=== PATIENT | female | born 1990 | race Hispanic/Latino ===

== ENCOUNTER 2019-02-26 18:34 | Emergency (ER) | payer BC ==
[2019-02-26 19:52] LABS: Absolute Lymphocytes (CBC) 1.8 K/uL (0.7-4.9); Absolute Monocytes 0.8 K/uL (0.1-1.3); Absolute Neutrophil 7.1 K/uL (1.8-8.0); Basophils % 0.3 % (0-1.3); Eosinophils % 1.3 % (0-4.4); Hematocrit 36.7 % (36.0-45.0); Lymphocytes % 18.2 % (15.3-44.8); MPV 8.8 fL (7.6-11.3); Monocytes % 7.7 % (3.3-12.3)
[2019-02-26 20:25] LABS: BUN Blood Urea Nitrogen 13 mg/dL (7-18); Bicarbonate 25 mmol/L (21-32); Glucose Level 82 mg/dL (74-106); HCG, Quantitative 121678 mIU/mL (1-3); Potassium 3.8 mmol/L (3.5-5.1); Sodium Level 140 mmol/L (136-145)
--- NOTE | 2019-02-26 21:53 | ER ---
Nurse's Notes [facility] Name: Ana Marin Age: 28 yrs Sex: Female : 1990 Arrival Date: 02/26/2019 Time: 18:38 Bed 14 Private MD: Diagnosis: 13 weeks gestation of Presentation: 02/26 18:54 Presenting complaint: Patient states: lately i have been having sharp stomach pains, i tw2 am with twins and i am 13 weeks, denies vag bleeding, center abdominal pain, +N, +V. Transition of care: patient was not received from another setting of care. Onset of symptoms was February 26, 2019. Risk Assessment: Do you want to hurt yourself or someone else? Patient reports no desire to harm self or others. Initial Sepsis Screen: Does the patient meet any 2 criteria? No. Patient's initial sepsis screen is negative. Does the patient have a suspected source of infection? No. Patient's initial sepsis screen is negative. Care prior to arrival: None. 18:54 Method Of Arrival: Ambulatory tw2 18:54 Acuity: MARTÍN 3 tw2 Triage Assessment: 18:56 General: Appears in no apparent distress. Behavior is calm, cooperative, appropriate tw2 for age. Pain: Complains of pain in abdomen. GI: Reports nausea, vomiting. 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 - Social history:: Smoking status: . - Ebola Screening: : Patient denies travel to an Ebola-affected area in the 21 days before illness onset. Screenin:09 Abuse screen: Denies threats or abuse. Nutritional screening: No deficits noted. jb4 Tuberculosis screening: No symptoms or risk factors identified. Fall Risk None identified. Assessment: 19:10 General: Appears in no apparent distress. comfortable, Behavior is calm, cooperative, jb4 appropriate for age. Pain: Complains of pain in abdomen Pain does not radiate. Pain currently is 0 out of 10 on a pain scale. at worst was 8 out of 10 on a pain scale. Quality of pain is described as crampy, Pain began 2-3 days ago. Is intermittent. Neuro: Level of Consciousness is awake, alert, obeys commands, Oriented to person, place, time, situation. Cardiovascular: Patient's skin is warm and dry. Respiratory: Airway is patent Respiratory effort is even, unlabored, Respiratory pattern is regular, symmetrical. GI: Abdomen is round non-distended, Bowel sounds present X 4 quads. Abd is soft and non tender X 4 quads. : No signs and/or symptoms were reported regarding the genitourinary system. EENT: No signs and/or symptoms were reported regarding the EENT system. Derm: Skin is intact, Skin is pink, warm \T\ dry. Musculoskeletal: Circulation, motion, and sensation intact. Range of motion: intact in all extremities. 20:09 Reassessment: Patient appears in no apparent distress at this time. Patient and/or jb4 family updated on plan of care and expected duration. Pain level reassessed. Patient is alert, oriented x 3, equal unlabored respirations, skin warm/dry/pink. pt is resting in bed with significant other at the bedside. 21:32 Reassessment: Pt is at ultrasound. jb4 21:53 Reassessment: Patient appears in no apparent distress at this time. Patient and/or jb4 family updated on plan of care and expected duration. Pain level reassessed. Patient is alert, oriented x 3, equal unlabored respirations, skin warm/dry/pink. Pt back in bed with significant other at the bedside. Vital Signs: 18:55 BP 147 / 68; Pulse 78; Resp 19; Temp 97.4(TE); Pulse Ox 99% on R/A; Weight 80.29 kg tw2 (R); Height 5 ft. 4 in. (162.56 cm); Pain 5/10; 20:09 BP 102 / 60; Pulse 78; Resp 16; Pulse Ox 100% on R/A; jb4 21:00 BP 106 / 52; Pulse 71; Resp 16; Pulse Ox 100% on R/A; jb4 21:53 BP 103 / 56; Pulse 64; Resp 16; Pulse Ox 99% on R/A; jb4 18:55 Body Mass Index 30.38 (80.29 kg, 162.56 cm) tw2 18:55 it comes and goes and it jumps up to a 9 tw2 ED Course: 18:38 Patient arrived in ED. mr 18:55 Triage completed. tw2 18:56 Arm band placed on. tw2 19:02 Zaynab Whelan FNP-C is [facility]. kb 19:02 Jose J Contreras MD is Attending Physician. kb 19:10 Patient has correct armband on for positive identification. Placed in gown. Bed in low jb4 position. Call light in reach. Side rails up X 1. Pulse ox on. NIBP on. 19:19 Kenton Becker, RN is Primary Nurse. jb4 19:38 Inserted saline lock: 22 gauge in left antecubital area, using aseptic technique. cm6 19:38 Initial lab(s) drawn, by ED staff, sent to lab. jb4 21:48 1St Trimester Each Addit Fetus In Process Unspecified. EDMS 21:48 1St Trimester Twins In Process Unspecified. EDMS 22:00 No provider procedures requiring assistance completed. IV discontinued, intact, jb4 bleeding controlled, No redness/swelling at site. Administered Medications: No medications were administered Outcome: 21:52 Discharge ordered by MD. kb 22:00 Discharged to home ambulatory, with significant other. jb4 22:00 Condition: stable 22:00 Discharge instructions given to patient, significant other, Instructed on discharge instructions, follow up and referral plans. Demonstrated understanding of instructions, follow-up care. 22:04 Patient left the ED. jb4 Signatures: Dispatcher [employer] EDMD Zaynab Whelan FNP-C CIVIL ATTORNEY-Venkata Emma Kramer Emily Monaco RN RN tw2 Kenton Becker, RN RN jb4 Xenia Montero cm6 Tao Ng RN RN ae4 Corrections: (The following items were deleted from the chart) 20:33 19:10 General: Appears in no apparent distress. comfortable, Behavior is calm, jb4 cooperative, appropriate for age, ae4 20:33 19:10 Pain: Complains of pain in abdomen Pain does not radiate. Pain currently is 0 out jb4 of 10 on a pain scale. at worst was 8 out of 10 on a pain scale. Quality of pain is described as crampy, Pain began 2-3 days ago. Is intermittent, ae4 20:33 19:10 Neuro: Level of Consciousness is awake, alert, obeys commands, Oriented to jb4 person, place, time, situation, ae4 20:33 19:10 Cardiovascular: Patient's skin is warm and dry. ae4 jb4 20:33 19:10 Respiratory: Airway is patent Respiratory effort is even, unlabored, Respiratory jb4 pattern is regular, symmetrical, ae4 20:33 19:10 GI: Abdomen is round non-distended, Bowel sounds present X 4 quads. Abd is soft jb4 and non tender X 4 quads. ae4 20:33 19:10 : No signs and/or symptoms were reported regarding the genitourinary system. ae4jb4 : 19:10 EENT: ae4 jb4 : 19:10 Derm: Skin is intact, Skin is pink, warm \T\ dry. ae4 jb4 :33 19:10 Musculoskeletal: Circulation, motion, and sensation intact. Range of motion: jb4 intact in all extremities, ae4 :33 20:09 Reassessment: Patient appears in no apparent distress at this time. Patient jb4 and/or family updated on plan of care and expected duration. Pain level reassessed. Patient is alert, oriented x 3, equal unlabored respirations, skin warm/dry/pink. significant other is at the bedside. ae4 20:34 20:09 BP 102 / 60; Pulse 78bpm; Resp 16bpm; Pulse Ox 100% RA; ae4 jb4 20:34 19:10 Patient has correct armband on for positive identification. Placed in gown. Bed jb4 in low position. Call light in reach. Side rails up X 1. ae4 20:34 19:10 Pulse ox on. NIBP on. ae4 jb4 20:34 19:38 Initial lab(s) drawn, by ED staff, sent to lab. ae4 4 20:34 20:09 Abuse screen: Denies threats or abuse. ae4 jb4 20:34 20:09 Nutritional screening: No deficits noted. ae4 jb4 20:34 20:09 Tuberculosis screening: No symptoms or risk factors identified. ae4 jb4 20:34 20:09 Fall Risk None identified. ae4 jb4 22:59 21:53 BP 103 / 56; Pulse 46bpm; Resp 16bpm; Pulse Ox 99% RA; jb4 jb4
--- NOTE | 2019-02-26 21:53 | EDPHYS ---
Physician Documentation [facility] Name: Ana Marin Age: 28 yrs Sex: Female : 1990 Arrival Date: 02/26/2019 Time: 18:38 Bed 14 Private MD: ED Physician Jose J Contreras HPI: 02/26 21:30 This 28 yrs old Female presents to ER via Ambulatory with complaints of kb Abdominal Pain, 13 wks . 21:30 The patient presents to the emergency department with abdominal pain, of the suprapubic kb area. The estimated gestational age is 13 weeks. course: care: private OB physician, Dr. Lopez, Leakage of Fluid: none appreciated, Ultrasound: the patient had an ultrasound, which was normal, Risk/complications: no obvious risks or complications are appreciated. Previous pregnancies: in previous pregnancies patient has had. Associated signs and symptoms: Pertinent positives: abdominal pain, Pertinent negatives: chest pain, diarrhea, dysuria, fever, frequency, nausea, ruptured membranes, seizure, shortness of breath, vaginal bleeding, vaginal discharge, vomiting. The patient has not experienced similar symptoms in the past. The patient has not recently seen a physician. Pt reports she has been having lower abd pain and is with twins so was concerned.. 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 - Social history:: Smoking status: . - Ebola Screening: : Patient denies travel to an Ebola-affected area in the 21 days before illness onset. ROS: 21:27 Constitutional: Negative for fever, chills, and weight loss, Cardiovascular: Negative kb for chest pain, palpitations, and edema, Respiratory: Negative for shortness of breath, cough, wheezing, and pleuritic chest pain, Back: Negative for injury and pain, : Negative for injury, bleeding, discharge, and swelling, MS/Extremity: Negative for injury and deformity, Skin: Negative for injury, rash, and discoloration, Neuro: Negative for headache, weakness, numbness, tingling, and seizure. 21:27 Abdomen/GI: Positive for abdominal pain, Negative for nausea, vomiting, and diarrhea, constipation, abdominal cramps, abdominal distension, anorexia. Exam: 21:27 Constitutional: This is a well developed, well nourished patient who is awake, alert, kb and in no acute distress. Head/Face: Normocephalic, atraumatic. Chest/axilla: Normal chest wall appearance and motion. Nontender with no deformity. No lesions are appreciated. Cardiovascular: Regular rate and rhythm with a normal S1 and S2. No gallops, murmurs, or rubs. Normal PMI, no JVD. No pulse deficits. Respiratory: Lungs have equal breath sounds bilaterally, clear to auscultation and percussion. No rales, rhonchi or wheezes noted. No increased work of breathing, no retractions or nasal flaring. Back: No spinal tenderness. No costovertebral tenderness. Full range of motion. Skin: Warm, dry with normal turgor. Normal color with no rashes, no lesions, and no evidence of cellulitis. MS/ Extremity: Pulses equal, no cyanosis. Neurovascular intact. Full, normal range of motion. Neuro: Awake and alert, GCS 15, oriented to person, place, time, and situation. Cranial nerves II-XII grossly intact. Motor strength 5/5 in all extremities. Sensory grossly intact. Cerebellar exam normal. Normal gait. 21:27 Abdomen/GI: Inspection: abdomen appears normal, Bowel sounds: normal, in all quadrants, Palpation: soft, in all quadrants, mild abdominal tenderness, in the suprapubic area. Vital Signs: 18:55 BP 147 / 68; Pulse 78; Resp 19; Temp 97.4(TE); Pulse Ox 99% on R/A; Weight 80.29 kg tw2 (R); Height 5 ft. 4 in. (162.56 cm); Pain 5/10; 20:09 BP 102 / 60; Pulse 78; Resp 16; Pulse Ox 100% on R/A; jb4 21:00 BP 106 / 52; Pulse 71; Resp 16; Pulse Ox 100% on R/A; jb4 21:53 BP 103 / 56; Pulse 64; Resp 16; Pulse Ox 99% on R/A; jb4 18:55 Body Mass Index 30.38 (80.29 kg, 162.56 cm) tw2 18:55 it comes and goes and it jumps up to a 9 tw2 MDM: 19:03 Patient medically screened. kb 21:29 Data reviewed: vital signs, nurses notes. Data interpreted: Pulse oximetry: on room air kb is 100 %. Interpretation: normal. Counseling: I had a detailed discussion with the patient and/or guardian regarding: the historical points, exam findings, and any diagnostic results supporting the discharge/admit diagnosis, lab results, radiology results, the need for outpatient follow up, an OB/Gyne specialist, to return to the emergency department if symptoms worsen or persist or if there are any questions or concerns that arise at home. 02/26 19:14 Order name: Quantitative Hcg; Complete Time: 20:41 kb 02/26 19:14 Order name: Abo/rh Typing; Complete Time: 20:50 kb 02/26 19:14 Order name: Basic Metabolic Panel; Complete Time: 20:41 kb 02/26 19:14 Order name: CBC with Diff; Complete Time: 19:56 kb 02/26 19:14 Order name: IV Saline Lock; Complete Time: 20:02 kb 02/26 19:14 Order name: Labs collected and sent; Complete Time: 20:02 kb 02/26 19:14 Order name: NPO; Complete Time: 20:02 kb 02/26 19:14 Order name: Urine Dipstick-Ancillary (obtain specimen); Complete Time: 20:02 kb 02/26 21:02 Order name: 1St Trimester Each Addit Fetus EDMS 02/26 21:48 Order name: 1St Trimester Twins EDMS Administered Medications: No medications were administered Disposition: 02/27 07:50 Co-signature as Attending Physician, Jose J Contreras MD I agree with the assessment and kristina plan of care. Disposition: 02/26/19 21:52 Discharged to Home. Impression: 13 weeks gestation of . - Condition is Stable. - Discharge Instructions: Second Trimester of , [id number]. - Medication Reconciliation Form, Thank You Letter, Antibiotic Education, Prescription Opioid Use form. - Work release form (02/26/19 22:05). jb4 - Follow up: Emergency Department; When: As needed; Reason: Worsening of condition. Follow up: Private Physician; When: 2 - 3 days; Reason: Recheck today's complaints, Continuance of care, Re-evaluation by your physician. Signatures: Dispatcher [employer] ED Zaynab Whelan, PREVENTION RN-Jahaira VALENTINEP-Jose J Ta MD MD cha Wise, Tara, RN RN tw2 Kenton Becker, RN RN jb4 Corrections: (The following items were deleted from the chart) 02/26 21:01 20:43 Transvaginal Ob+US.RAD.BRZ ordered. EDIN EDMS 21:48 21:01 Matter Eval Tm 1 ordered. EDIN EDMS 22:04 21:52 02/26/2019 21:52 Discharged to Home. Impression: 13 weeks gestation of . jb4 Condition is Stable. Forms are Medication Reconciliation Form, Thank You Letter, Antibiotic Education, Prescription Opioid Use. Follow up: Emergency Department; When: As needed; Reason: Worsening of condition. Follow up: Private Physician; When: 2 - 3 days; Reason: Recheck today's complaints, Continuance of care, Re-evaluation by your physician. kb
--- NOTE | 2019-02-27 10:54 | RAD REPORT ---
EXAM DESCRIPTION: US - 1St Trimester Each Addit Fetus - 02/26/2019 9:47 pm CLINICAL HISTORY: ABD CRAMPING, COMPARISON: 1St Trimester Twins dated 01/08/20191St Trimester Twins dated 01/08/2019; 1St Trimester Ea ch Addit Fetus dated 02/26/2019 FINDINGS: Twin gestations are identified. The membrane between the gestational sacs is somewhat thic k and are two separate placental masses identified, indicating dichorionic -diamniotic twinning. Twin A demonstrates a crown rump length of 7.7 cm, indicating a gestational age of 13 weeks 6 days. F etal cardiac activity is noted to be normal at 155 BPM. Amniotic fluid volume within the twin A sac i s within normal limits. No gross abnormality is seen for early gestational age. Twin A placenta l mass is posteriorly located. Twin B demonstrates a crown rump length of 8.2 cm corresponding to a gestational age of 14 weeks and 1 day. cardiac activity is noted to be normal at 160 BPM. Amniotic fluid volume with an twin B sac is within normal limits. No gross abnormality is seen for early gestational age. Twin B paige cental mass is anteriorly located The maternal adnexa are within normal limits. The cervix is long and closed. IMPRESSION: Live, dichorionic and diamniotic twin gestations are identified as detailed.
== END 2019-02-26 22:04 | disposition home or self-care (01) ==
LOC: ER 18:34
DX: O30.041 Twin pregnancy, dichorionic/diamniotic, first trimester (principal); Z3A.13 13 weeks gestation of pregnancy
CPT/HCPCS: 36415; 76801; 76802; 80048; 84702; 85025; 86900; 86901; 99284